=== PATIENT | female | born 1950 | race Caucasian/White ===

== ENCOUNTER → 2017-12-18 12:00 | Outpatient (CLI) | payer MEDICARE, SELFPAY ==
--- NOTE | 2017-12-18 12:04 | XR_ITS ---
XR ankle LT min 3V HISTORY: ITS.REASON: left ankle pain ORDERING PHYSICIAN: Brett Pérez MD PATIENT AGE: 67 years Comparison: None FINDINGS: No fracture or dislocation. No lytic or blastic change. There is normal mineralization.. The joint spaces are well-preserved. No significant degenerative/arthritic changes. No erosive changes evident. Foot fractures are present as described in the report IMPRESSION: No acute ankle findings
--- NOTE | 2017-12-18 12:04 | XR_ITS ---
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 There is an avulsion fracture involving the anterior lateral aspect of the calcaneus without significant displacement. Mildly displaced fracture involves the inferior aspect of the cuboid. There is an os navicularis. No other significant anomalies are evident. IMPRESSION: Mildly displaced cuboid fracture with nondisplaced anterior and lateral calcaneal avulsion fracture
--- NOTE | 2017-12-18 12:04 | XR_ITS ---
XR wrist LT min 3V HISTORY pain following injury, scaphoid fracture ITS.REASON: cast applied ORDERING PHYSICIAN: Brett Pérez MD PATIENT AGE: 67 years Comparison: 12/12/2017 FINDINGS: A cast has been placed which obscures fine detail of the bony elements. Nondisplaced trackers present through the waist of the scaphoid barely perceptible on these images due to the overlying cast. There is good alignment. The scapholunate space is slightly widened IMPRESSION: Interval placement of a cast with good alignment of the scaphoid fracture with mild widening of the scapholunate space
--- NOTE | 2017-12-18 13:48 | CT_ITS ---
CT wrist LT wo con HISTORY left wrist pain following injury, possible scaphoid fracture ITS.REASON: lt wrist fx/ without contrast ORDERING PHYSICIAN: Brett Pérez MD PATIENT AGE: 67 years Comparison: 12/12/2017 FINDINGS: The study is somewhat limited secondary to patient's inability to be properly positioned. The images are obtained in oblique rotated plain. Reformatted images are performed. There is a nondisplaced fracture through the waist of the navicular. Osteoarthritic changes are present at the first metacarpal carpal joint. Subarticular cystic changes are present in the capitate There is a longitudinal fracture through the mid to dorsal aspect of the triquetrum. A nondisplaced fracture also involves the dorsal aspect of the lunate. IMPRESSION: 1. Nondisplaced fracture of the waist of the navicular. 2. Nondisplaced longitudinal fracture of the mid to dorsal aspect of the triquetrum. 3. Nondisplaced avulsion fracture of the posterior aspect of the lunate
--- NOTE | 2017-12-18 13:48 | CT_ITS ---
CT foot LT wo con INDICATION: Posttraumatic pain, foot fracture ITS.REASON: lt foot fx/ without contrast ORDERING PHYSICIAN: Brett Pérez MD PATIENT AGE: 67 years COMPARISON: None TECHNIQUE: Axial images are obtained without contrast. Sagittal and coronal reformatted images are reviewed as well. All CT scans at the facility use one or more dose reduction, viz: automated exposure control, ma/kV adjustment per patient size (including targeted exams where dose is matched to indication, i.e. head), or iterative reconstruction technique. FINDINGS: Multiple fractures are present and include: Nondisplaced comminuted fracture through the anterior lateral aspect of the calcaneus just superior to the calcaneal cuboid junction There is an oblique fracture through the inferior aspect of the cuboid. This fragment is by approximately 4 mm. There is overlying soft tissue swelling. Nondisplaced longitudinal fracture through the mid to medial And proximal aspect of the navicular at the talonavicular junction. There also appears to be a nondisplaced fracture through the medial aspect of the navicular Osteoarthritic changes are present first metatarsal phalangeal junction. IMPRESSION: Multiple foot fractures including fractures of the calcaneus anteriorly and laterally, with a mildly displaced fracture at the cuboid, and nondisplaced fractures of the navicular. There is associated soft tissue swelling
== END ==
PROVIDERS: PCP Nurse Practitioner Family; Visit Provider Orthopaedic Surgery
DX: M79.672 Pain in left foot (principal); S62.102A Fracture of unspecified carpal bone, left wrist, initial encounter for closed fracture; M25.572 Pain in left ankle and joints of left foot; S92.902A Unspecified fracture of left foot, initial encounter for closed fracture
CPT/HCPCS: 73110; 73200; 73610; 73630; 73700

== ENCOUNTER 2017-12-18 14:34 | Outpatient (RCR) | payer MEDICARE, SELFPAY | END 2017-12-18 14:35 | disposition home or self-care (01) | LOC: PT 14:34 | PROVIDERS: Family Provider Nurse Practitioner Family; PCP Nurse Practitioner Family; Visit Provider Orthopaedic Surgery | DX: S82.001A Unspecified fracture of right patella, initial encounter for closed fracture (principal) | CPT/HCPCS: 97760 ==

== ENCOUNTER → 2018-01-14 14:30 | Outpatient (CLI) | payer MEDICARE, SELFPAY ==
--- NOTE | 2018-01-14 14:34 | XR_ITS ---
XR foot LT min 3V HISTORY: Follow-up fracture, pain ITS.REASON: left foot fracture ORDERING PHYSICIAN: Brett Pérez MD PATIENT AGE: 67 years COMPARISON: 12/18/2017 FINDINGS: There is been no significant change in the avulsion fracture at the calcaneal cuboid junction as well as the larger fracture of the cuboid. Which is slightly displaced inferiorly. There is a faint lucency through the mid aspect of the navicular with a nondisplaced fracture. IMPRESSION: 1. Overall no change in the foot fractures as described above.
--- NOTE | 2018-01-14 14:34 | XR_ITS ---
XR knee RT 2V HISTORY: Follow-up fracture ITS.REASON: follow up on fracture/ out of brace ORDERING PHYSICIAN: Brett Pérez MD PATIENT AGE: 67 years COMPARISON: None 12/12/2017 FINDINGS: Only AP and lateral views are obtained. The longitudinal fracture of the lateral aspect of the patella does appear less apparent. Fractures nondisplaced. A transverse lucency is present in the superior aspect of the patella and could be related to associated fracture as well. IMPRESSION: Nondisplaced patellar fracture somewhat less apparent
--- NOTE | 2018-01-14 14:41 | XR_ITS ---
XR wrist LT min 3V HISTORY ITS.REASON: scaphoid fracture left wrist/ xrays in cast! ORDERING PHYSICIAN: Brett Pérez MD PATIENT AGE: 67 years Comparison: 12/18/2017 FINDINGS: Study is obtained through cast. The scaphoid fractures obscured by the overlying cast. There is good alignment. IMPRESSION: Good alignment of scaphoid fracture which is obscured by overlying cast
== END ==
PROVIDERS: PCP Nurse Practitioner Family; Visit Provider Orthopaedic Surgery
DX: S92.212A Displaced fracture of cuboid bone of left foot, initial encounter for closed fracture (principal); S82.001A Unspecified fracture of right patella, initial encounter for closed fracture; S62.009A Unspecified fracture of navicular [scaphoid] bone of unspecified wrist, initial encounter for closed fracture
CPT/HCPCS: 73110; 73560; 73630

== ENCOUNTER → 2018-03-26 08:45 | Outpatient (CLI) | payer MEDICARE, SELFPAY ==
--- NOTE | 2018-03-26 08:48 | XR_ITS ---
XR foot LT min 3V HISTORY: Follow-up fracture ITS.REASON: lt foot fracture xrays out of splint ORDERING PHYSICIAN: Brett Pérez MD PATIENT AGE: 67 years COMPARISON: 01/14/2018 FINDINGS: No change in the avulsion fracture of the calcaneocuboid junction. Bony hypertrophic changes noted along the medial aspect of the navicular. Faint lucency of the mid aspect of the navicular once again noted and could represent residual from nondisplaced fracture. Mild osteoarthritic changes are present at the first MTP joint. IMPRESSION: Overall no change calcaneocuboid avulsion and possible nondisplaced fracture of the navicular
--- NOTE | 2018-03-26 08:48 | XR_ITS ---
XR knee RT 2V HISTORY: ITS.REASON: ap lateral ORDERING PHYSICIAN: Brett Pérez MD PATIENT AGE: 67 years COMPARISON: 01/14/2018 FINDINGS: Minimal osteoarthritic changes involve the patellofemoral joint. There is normal alignment. A faint longitudinal lucency noted along the lateral aspect of the patella and could be related to a persistent fracture line. CT may confirm. Otherwise negative. IMPRESSION: No change possible longitudinal fracture lateral aspect of the patella
--- NOTE | 2018-03-26 08:56 | XR_ITS ---
XR wrist LT w scaphoid HISTORY ITS.REASON: scaphoid fracture follow up ORDERING PHYSICIAN: Brett Pérez MD PATIENT AGE: 67 years Comparison: 01/14/2018 FINDINGS: The cast has been removed. There is generalized osteopenia. The navicular fracture line is not readily apparent. No evidence of sclerosis of the proximal pole. There is good alignment. IMPRESSION: Interval removal of the cast with no obvious residual fracture line with diffuse osteopenia
== END ==
PROVIDERS: PCP Nurse Practitioner Family; Visit Provider Orthopaedic Surgery
DX: S82.009A Unspecified fracture of unspecified patella, initial encounter for closed fracture (principal); S92.212A Displaced fracture of cuboid bone of left foot, initial encounter for closed fracture; S62.009A Unspecified fracture of navicular [scaphoid] bone of unspecified wrist, initial encounter for closed fracture
CPT/HCPCS: 73110; 73560; 73630

== ENCOUNTER 2019-03-15 13:45 | Outpatient (RCR) | payer MEDICARE, SELFPAY | END 2019-06-16 10:11 | disposition home or self-care (01) | LOC: PT 13:45 | PROVIDERS: Visit Provider Thoracic Surgery (Cardiothoracic Vascular Surgery) | DX: Z95.1 Presence of aortocoronary bypass graft (principal) | CPT/HCPCS: 93798 ==

== ENCOUNTER 2023-11-07 15:24 | Outpatient (CLI) | payer MEDICARE, SELFPAY ==
--- NOTE | 2023-11-07 15:28 | XR_ITS ---
FINAL REPORT TECHNIQUE: Bone densitometry calculations of the lumbar spine and left hip were obtained. CLINICAL HISTORY: osteoporosis COMPARISON: None FINDINGS: Using L1-4, the bone mineral density of the spine is 0.868 g/cm2, corresponding to T-score of -1.6. Using the left hip, the bone mineral density of the femoral neck is 0.506 g/cm2, corresponding to a T-score of -3.1. NOTE: T-score: Standard deviation compared with peak bone mass of young adult mean. *Following the recommendations of the International Society of Bone densitometry, classification of hip BMD is based on the lower of two T-scores; total hip or femoral neck. IMPRESSION: Diminished bone mineral density of the lumbar spine consistent with osteopenia. Diminished bone mineral density of the left hip, consistent with osteoporosis. Reviewed, Interpreted and Dictated by Bin Kraft MD Transcribed by Janis Goodrich Authenticated and [facility]
--- NOTE | 2023-11-07 15:28 | MM_ITS ---
PROCEDURE INFORMATION: Exam: MG Bilateral Screening 3D Mammography Exam date and time: 11/07/2023 3:18 PM Age: 72 years old Clinical indication: Screening examination TECHNIQUE: Imaging protocol: Bilateral Screening tomosynthesis and 2D mammography including computer-aided detection (CAD) when performed. COMPARISON: MG MM MAMMO DIGITAL TOOTIE SCREEN BILAT 01/25/2022 2:41 PM FINDINGS: MAMMOGRAPHY: Breast composition: There are scattered areas of fibroglandular density. Mass: No suspicious masses. Architectural distortion: None. Calcifications: No suspicious calcifications. Asymmetric density: None. Skin thickening: None. Axillary adenopathy: None. IMPRESSION: No mammographic evidence of malignancy. Annual screening is recommended unless otherwise clinically indicated. ASSESSMENT: BI-RADS Category 1: Negative
== END 2023-11-07 23:59 | disposition home or self-care (01) ==
LOC: RAD 15:25
PROVIDERS: PCP Internal Medicine; Visit Provider Internal Medicine
DX: M81.0 Age-related osteoporosis without current pathological fracture (principal); Z12.31 Encounter for screening mammogram for malignant neoplasm of breast
CPT/HCPCS: 77063; 77067; 77080

== ENCOUNTER 2024-07-01 14:00 | Outpatient (CLI) | payer MEDICARE, SELFPAY ==
[2024-07-01 18:23] LABS: Basophils # 0.1 K/mm3 (0-0.2); Basophils % 1.1 % (0.1-2.0); Eosinophils # 0.1 K/mm3 (0.0-0.4); Eosinophils % 1.7 % (0.1-12.0); Hematocrit 46.1 % (37.0-47.0); Hemoglobin 15.3 g/dL (12.2-16.2); Lymphocytes # 1.7 K/mm3 (0.7-4.5); Lymphocytes % 31.8 % (10-50); Mean Corpuscular HGB Conc 33.2 g/dL (31.8-35.4); Mean Corpuscular Hemoglobin 30.7 pg (27.0-31.2); Mean Corpuscular Volume 92.4 fl (81-99); Mean Platelet Volume 9.7 fl (7.4-10.4); Monocytes # 0.4 K/mm3 (0.1-1.0); Monocytes % 7.9 % (1.7-9.3); Neutrophils % 56.7 % (37.0-80.0); Nucleated Red Blood Cells # 0 10^3/uL; Nucleated Red Blood Cells % 0 %; Platelet Count 311 K/mm3 (142-424); Red Blood Count 4.99 M/mm3 (4.20-5.40); Red Cell Distribution Width 12.9 % (11.5-17.5); Red Cell Distribution Width-SD 43.9 fL; White Blood Count 5.3 K/mm3 (4.8-10.8)
[2024-07-01 19:45] LABS: Albumin Level 4.1 g/dl (3.5-5.0); Chloride 103 mmol/L (98-107); Potassium 4.6 mmoL/L (3.5-5.1); Sodium 140 mmol/L (136-145)
[2024-07-01 19:47] LABS: Blood Urea Nitrogen 17 mg/dl (7-17); Estimated Glomerular Filt Rate 70 ml/min (>60); GFR (African American) 85 ML/MIN (>60)
[2024-07-01 19:48] LABS: Alanine Aminotransferase 14 U/L (12-78); Albumin/Globulin Ratio 1.1 (1.1-1.8); Alkaline Phosphatase 67 U/L (38-126); Anion Gap 13.6 mEq/L (5-15); Aspartate Amino Transferase 23 U/L (14-36); Bilirubin,Total 0.5 mg/dl (0.2-1.3); Calcium 9.1 mg/dl (8.4-10.2); Carbon Dioxide 28 mmol/L (22.0-30.0); Chol/HDL Ratio 4.8 (1-3.5); Cholesterol 270 mg/dl (140-200); Globulin 3.6 g/dL (1.3-3.2); Glucose 109 mg/dl (74-100); HDL Cholesterol 56 mg/dl (40-60); Total Protein,Serum 7.7 g/dl (6.3-8.2); Triglycerides 114 mg/dl (30-150); VLDL Cholesterol 23 mg/dL (0-40)
[2024-07-01 20:19] LABS: 25-OH Vitamin D, Total < 12.8 ng/mL (30-100)
[2024-07-01 20:21] LABS: Thyroid Stimulating Hormone 1.79 uIU/mL (0.465-4.68)
[2024-07-01 21:53] LABS: Hemoglobin A1C 6.4 % (4.0-6.0)
== END 2024-07-01 23:59 | disposition home or self-care (01) ==
LOC: LAB.DROPOF 07-02 11:39
PROVIDERS: PCP Family Medicine; Visit Provider Family Medicine
DX: I25.10 Atherosclerotic heart disease of native coronary artery without angina pectoris (principal); I10 Essential (primary) hypertension; E78.5 Hyperlipidemia, unspecified; R73.03 Prediabetes; Z95.1 Presence of aortocoronary bypass graft
CPT/HCPCS: 80053; 80061; 82306; 83036; 84443; 85025

== ENCOUNTER 2024-10-13 13:50 | Outpatient (CLI) | payer MEDICARE, SELFPAY ==
[2024-10-13 19:37] LABS: Alanine Aminotransferase 21 U/L (12-78); Albumin Level 3.8 g/dl (3.5-5.0); Albumin/Globulin Ratio 1.4 (1.1-1.8); Anion Gap 11.2 mEq/L (5-15); Aspartate Amino Transferase 26 U/L (14-36); Bilirubin,Total 0.7 mg/dl (0.2-1.3); Blood Urea Nitrogen 13 mg/dl (7-17); Calcium 9.2 mg/dl (8.4-10.2); Carbon Dioxide 26 mmol/L (22.0-30.0); Chloride 106 mmol/L (98-107); Creatinine,Serum 1.00 mg/dl (0.52-1.04); Estimated Glomerular Filt Rate 54 ml/min (>60); GFR (African American) 65 ML/MIN (>60); Globulin 2.7 g/dL (1.3-3.2); Glucose 120 mg/dl (74-100); Potassium 4.2 mmoL/L (3.5-5.1); Sodium 139 mmol/L (136-145); Total Protein,Serum 6.5 g/dl (6.3-8.2); Triglycerides 94 mg/dl (30-150)
[2024-10-13 19:38] LABS: Alkaline Phosphatase 69 U/L (38-126); Cholesterol 134 mg/dl (140-200); HDL Cholesterol 42 mg/dl (40-60)
[2024-10-13 19:54] LABS: Hematocrit 41.4 % (37.0-47.0); Hemoglobin 13.0 g/dL (12.2-16.2); Immature Granulocytes % 0.2 %; Mean Corpuscular HGB Conc 31.4 g/dL (31.8-35.4); Mean Corpuscular Hemoglobin 29.7 pg (27.0-31.2); Mean Corpuscular Volume 94.5 fl (81-99); Nucleated Red Blood Cells % 0 %; Platelet Count 234 K/mm3 (142-424); Red Blood Count 4.38 M/mm3 (4.20-5.40); Red Cell Distribution Width-SD 48.4 fL; White Blood Count 4.2 K/mm3 (4.8-10.8)
[2024-10-13 20:08] LABS: 25-OH Vitamin D, Total < 12.8 ng/mL (30-100)
[2024-10-13 21:47] LABS: Hemoglobin A1C 6.5 % (4.0-6.0)
== END 2024-10-13 23:59 | disposition home or self-care (01) ==
LOC: LAB.DROPOF 10-14 10:23
PROVIDERS: PCP Family Medicine; Visit Provider Family Medicine
DX: I25.10 Atherosclerotic heart disease of native coronary artery without angina pectoris (principal); I10 Essential (primary) hypertension; E78.00 Pure hypercholesterolemia, unspecified; E55.9 Vitamin D deficiency, unspecified; R73.03 Prediabetes
CPT/HCPCS: 80053; 80061; 82306; 83036; 85025

== ENCOUNTER 2025-01-19 18:30 | Emergency (ER) | payer MEDICARE, SELFPAY ==
[2025-01-19] VITALS (14 sets, daily range): BP systolic 147–230; BP diastolic 73–104; PULSE 70–87; RESP 10–20; TEMP 36.9–37.2; O2SAT 90–97; BMI 25.0
--- NOTE | 2025-01-19 18:55 | ED_ITS ---
Discharge Plan Disposition Chief Complaint: Fall Prescriptions Prescriptions: No Action aspirin [Adult Aspirin Regimen] 81 mg tablet,delayed release (DR/EC) 81 mg PO DAILY Qty: 90 3RF lisinopril 20 mg tablet 20 mg PO atorvastatin 40 mg tablet See Rx Instructions .ROUTE .COMPLEX Qty: 90 1RF Dose Instruction: TAKE 1 TABLET BY MOUTH AT BEDTIME NIGHTLY Rx Instructions: TAKE 1 TABLET BY MOUTH AT BEDTIME NIGHTLY citalopram 20 mg tablet 20 mg PO DAILY Qty: 90 1RF bisoprolol fumarate 5 mg tablet 5 mg PO DAILY Qty: 30 3RF pantoprazole 20 mg tablet,delayed release (DR/EC) See Rx Instructions .ROUTE .COMPLEX Qty: 90 3RF Dose Instruction: TAKE 1 TABLET BY MOUTH ONCE DAILY Rx Instructions: TAKE 1 TABLET BY MOUTH ONCE DAILY Referrals Follow up/Referrals: Angeles Mireles APRN [Primary Care Provider, Family Practice] - See instructions Print Language Print Language: Divehi Discharge ED Provider: Young Fontenot General Adult HPI <PIETER Matias - Last Filed: 01/19/25 21:57> General Chief complaint: Fall Stated complaint: fall Time Seen by Provider: 01/19/25 18:38 Mode of Arrival: EMS Source of Information: Patient Description of Symptoms (Recalled from ER Triage Doc. by RN): Patient states that she was taking the dog out and tripped and landed on right hip. Patient complaining of pain in right hip. Patient did get an injection by PCP office yesterday for sciatica pain in that same hip. History of Present Illness HPI narrative: 74-year-old female presents emerged from via EMS for mechanical fall that happened just prior to arrival, patient states that she was taking the dog out and tripped over the dog . Landed on her right hip complaining of right hip pain, denies striking her head denies any LOC, denies any presyncopal or syncopal event, denies any neck pain, mid thoracic pain, or lower back pain, denies any radicular type symptomatology, denies urinary bladder or bowel dysfunction, denies any saddle anesthesia or numbness or tingling, patient denies any other upper or lower extremity injury, patient denies any fever chills chest pain shortness of breath nausea vomiting constipation diarrhea no urinary symptoms, other past medical history is consistent with hyperlipidemia, hypertension, osteoporosis, coronary artery disease status post CABG, patient is on antiplatelet therapy with aspirin, no anticoagulants, IKER, GERD, MDD. Initial triage vitals notable for hypertensive state at around 200 systolic otherwise unremarkable triage vitals. No history of tobacco alcohol or drug use. Also of note, triage nurse states that the patient did get what sounds like an IM injection by PCP yesterday for sciatic type pain. Please note that above description of symptoms, in this electronic medical record under categorization of recalled from ER triage doctor by RN are reflective of an initial nursing assessment, however, is not reflective of my full history and physical exam that was personally taken and clarified. Consequentially, this preceding description of symptoms, which may include the patient's categorized chief complaint in the EMR, do not reflect my personal clinical impression, and the ultimate description of history of present illness and patient stated complaints should be deferred to this section of the note. Unless stated otherwise or congruent with this section of the note, additional signs, symptoms, or incongruence should be interpreted as inaccurate with my clinical impression. Onset (ago): hour(s) Related Data Home Medications ?Medication ?Instructions ?Recorded ?Confirmed lisinopril 20 mg tablet 20 mg PO 12/30/24 01/18/25 Previous Rx's ?Medication ?Instructions ?Recorded pantoprazole 20 mg tablet,delayed See Rx Instructions .Route 06/11/24 release .COMPLEX #90 tabs aspirin 81 mg tablet,delayed 81 mg PO DAILY #90 tabs 0 07/01/24 release (Adult Aspirin Regimen) citalopram 20 mg tablet 20 mg PO DAILY Depression #9 0 tabs 07/15/24 bisoprolol fumarate 5 mg tablet 5 mg PO DAILY #30 tabs 10/13/24 atorvastatin 40 mg tablet See Rx Instructions .Route 1 .COMPLEX #90 ea Allergies Allergy/AdvReac Type Severity Reaction Status Date / Time No Known Drug Allergies Allergy Other Verified 01/19/25 18:37 PENDING SALE TO [facility] <PIETER Matias - Last Filed: 01/19/25 21:57> PENDING SALE TO [facility] Disclaimer: The information contained in this section may have been updated after the patient was seen, as this information can be updated by other users. Surgical History (Updated 01/18/25 @ 14:21 by Lyn Campoverde MA) History of cholecystectomy History of open heart surgery Social History Smoking Status: Never smoker second hand exposure: No alcohol intake: never substance use type: denies use current occupational status: unemployed Travel in the last 8 weeks?: None Have you lived/traveled outside US in past 30 days?: No Contact w/someone who lives/traveled outside US past 30 days?: No Exposure to someone with infectious disease in past 14 days?: No Do you have a fever (greater than 100.4 F or 38 C)?: No Have you tested positive for COVID-19?: No Exposed to someone with COVID-19 in past 14 days?: No Do you have a sore throat?: No Do you have a cough?: No Do you have any weakness?: No Do you have any diarrhea?: No Are you experiencing any unusual bleeding?: No Do you have any muscle aches/pain?: No Do you have any abdominal pain?: No Are you experiencing loss of taste or smell?: No Other Medical History Have you received the Pneumonia Vaccine: No <PIETER Matias - Last Filed: 01/19/25 21:57> ROS Obtained: Yes All systems reviewed & no additional complaints except as documented Physical Exam <PIETER Matias - Last Filed: 01/19/25 21:57> General General appearance: alert and in no apparent distress Head Head exam: atraumatic and normocephalic Eye Eye exam: Present PERRL and EOMI ENT ENT exam: Present mucous membranes moist Neck Neck exam: Present normal inspection Chest Chest inspection: Present normal inspection and symmetric chest wall rise Respiratory Respiratory exam: Present normal lung sounds bilaterally; Absent respiratory distress, wheezes or stridor Cardiovascular Cardiovascular exam: Present regular rate and normal rhythm Abdominal Exam Abdominal exam: Present soft; Absent tenderness, guarding, rebound or rigidity Extremities Exam Extremities exam: Present tenderness and other (No obvious limb shortening or external rotation of the patient's hip pain to palpation of the intertrochanteric region, otherwise neurovascular intact, some pain limited range of motion, but wiggles the toes with good plantarflexion dorsiflexion. No open fracture or other traumatic injury of the bi); Absent normal inspection or full ROM Back Exam Back exam: Absent paraspinal tenderness or vertebral tenderness Neurological Exam Neurological exam: Present alert and oriented X3 Psychiatric Psychiatric exam: Present normal affect Skin Skin exam: Present warm and dry Medical Decision Making <PIETER Matias - Last Filed: 01/19/25 21:57> Medical Records Medical records reviewed: Yes I reviewed the patient's medical records. Screening: Per USPSTF and CDC recommendations, given the prevalence of disease in our region, it is our hospital?s policy to screen for HIV and viral Hepatitis for all patients aged 18 and over and those with ongoing risk factors. Beau Inquiry Pt receiving controlled substance: Yes Beau was queried for this patient: No Reason not queried -: Emergent pt cond-no time Risks and benefits of using a controlled substance: were discussed with pt by me Vital Signs: 01/19/25 18:31 01/19/25 18:32 01/19/25 19:05 Temperature 98.5 F Temperature Source Oral Pulse Rate 78 74 Pulse Rate [Right Brachial] 81 Respiratory Rate 18 16 19 Blood Pressure 210/89 H 147/95 H Blood Pressure [Right Arm] 210/89 H Blood Pressure Mean [Right Arm] 129 Blood Pressure Source [Right Arm] Automatic Cuff Blood Pressure Position [Right Arm] Sitting 02 Sat by Pulse Oximetry 94 L 94 L 92 L Oxygen Delivery Method Room Air 01/19/25 19:22 01/19/25 19:35 01/19/25 19:53 Temperature Temperature Source Pulse Rate 70 77 Pulse Rate [Right Brachial] Respiratory Rate 16 10 L Blood Pressure 230/88 H 216/85 H Blood Pressure [Right Arm] Blood Pressure Mean [Right Arm] Blood Pressure Source [Right Arm] Blood Pressure Position [Right Arm] 02 Sat by Pulse Oximetry 96 96 92 L Oxygen Delivery Method Room Air Room Air 01/19/25 20:31 01/19/25 21:01 01/19/25 22:06 Temperature Temperature Source Pulse Rate 77 82 86 Pulse Rate [Right Brachial] Respiratory Rate 20 16 15 Blood Pressure 175/95 H 169/104 H 194/80 H Blood Pressure [Right Arm] Blood Pressure Mean [Right Arm] Blood Pressure Source [Right Arm] Blood Pressure Position [Right Arm] 02 Sat by Pulse Oximetry 90 L 91 L 90 L Oxygen Delivery Method Room Air Lab Data Lab results reviewed: Yes I reviewed the patient's lab results. Lab Results 01/19/25 18:20: WBC 12.4 H, RBC 4.34, Hgb 13.3, Hct 40.6, MCV 93.5, MCH 30.6, MCHC 32.8, RDW 12.8, Plt Count 332, MPV 9.8, Neut % (Auto) 73.0, Lymph % (Auto) 21.5, Lyon % (Auto) 4.8, Eos % (Auto) 0.2, Baso % (Auto) 0.2, Neut # (Auto) 9.1 H, Lymph # (Auto) 2.7, Lyon # (Auto) 0.6, Eos # (Auto) 0.0, Baso # (Auto) 0.0, S odium 134 L, Potassium 4.3, Chloride 100, Carbon Dioxide 24, Anion Gap 14.3, BUN 28 H, Creatinine 1.10 H, Estimated Creat Clear 47, Estimated GFR 48 L, Est GFR ( Amer) 58 L, Glucose 200 H, Calcium 8.9, Total Bilirubin 0.9, AST 44 H, ALT 25, Alkaline Phosphatase 55, Total Protein 8.5 H D, Albumin 4.6, Globulin 3.9 H, Albumin/Globulin Ratio 1.2 01/19/25 18:20 01/19/25 18:20 Orders (Tests/Meds): ED MEDICATIONS Discontinued Medications Generic Name Dose Route Start Last Admin Trade Name Freq PRN Reason Stop Dose Admin Fentanyl Citrate 50 mcg 01/19/25 19:01 01/19/25 19:50 Fentanyl 100mcg/2ml Vial IV 01/19/25 19:02 50 mcg ONCE ONE Administration Ondansetron HCl 4 mg 01/19/25 19:02 01/19/25 19:50 Ondansetron 4mg/2ml Vial IV 01/19/25 19:03 4 mg ONCE ONE Administration ORDERS Category Date Time Status CT bony pelvis Stat Cat Scan 01/19/25 19:[address] cervical spine wo con Stat Cat Scan 01/19/25 19:[address] head/brain wo con Stat Cat Scan 01/19/25 19:[address] lumbar spine wo con Stat Cat Scan 01/19/25 19:00 Completed XR chest portable Stat Exams 01/19/25 19:00 Completed XR femur RT 2V Stat Exams 01/19/25 19:01 Completed XR hip RT 2-3V w/pelvis Stat Exams 01/19/25 19:00 Completed Complete Blood Count Auto Diff Stat Lab 01/19/25 18:20 Completed Comprehensive Metabolic Panel Stat Lab 01/19/25 18:20 Completed Medical Decision Narrative: 74-year-old female presents the emergency department with a mechanical fall and right hip pain, differential diagnose include but not limited to, hip fracture, hip strain/sprain, sacral fracture, pelvic fracture, lumbar vertebral body fracture, back strain/sprain, femur fracture among others. Will obtain basic laboratory studies, CT head without contrast CT cervical spine without contrast, CT lumbar spine without contrast, CT bony pelvis, chest x-ray femur x-ray and right hip/pelvic x-ray, will give 50 mics of IV fentanyl and 4 mg IV Zofran, as well as basic laboratory studies. CBC notable for leukocytosis 12.4 CMP is noted for mild hyponatremia 134, BUN elevation 28 and creatinine elevation 1.1, I reviewed the patient's CT pelvis without contrast on the corresponding radiologic report, displaced impacted fracture involving the subcapital right femoral neck I reviewed the patient's CT cervical spine without contrast on the corresponding radiologic report, no acute cervical fracture or traumatic subluxation straightening lordosis with levocurvature, mild multilevel degenerative disc disease and facet joint spondylosis moderate to severe calcifications of the bilateral carotid arteries consider follow-up nonemergent carotid Doppler or CTA. I reviewed the patient's CT head without contrast along the corresponding radiologic report, no acute intracranial abnormality, chronic intracranial findings, mild soft tissue swelling of the right frontal scalp. I reviewed the patient's CT lumbar spine without contrast along the corresponding radiologic report, no acute osseous abnormality, degenerative changes as above MRI if clinically warranted. I reviewed the patient's right femur x-ray along the corresponding radiologic report, fracture of the right femoral neck is better evaluated on CT. I reviewed the patient's chest x-ray along with corresponding radiologic report, no acute process. I reviewed the patient's hip x-ray along the corresponding radiologic report, fracture of the right femoral neck better evaluated on CT. I discussed this patient's case with the on-call orthopedic surgeon Dr. Boyer at approximately 825 PM, he saw and reviewed the patient's x-ray films, unfortunately Dr. Boyer is going out of town, and will not be available for surgical consultation/fixation. He recommends transfer. I discussed this patient's case with [facility] orthopedic surgeon on- call Dr.Peterson Marin, at approximately 8:50 PM, he would like me to send him the images of the CT as well as plain film x-rays he will call me back/advise me for any further recommendations after he reviews the patient's films. I discussed this patient's case over the telephone with orthopedic surgeon as discussed above at approximately 9:09 PM, he recommends transferring the patient to [facility] as himself or one of his partners will be able to perform surgical intervention on her there. Thus we will reach out to [facility] for transfer. I discussed this with the patient and daughter (Anastasia) over the phone at the bedside they are in agreement with the current treatment plan/transfer plan to [facility] if excepted by hospitalist/transfer physician. I discussed this patient's case with the attending physician Dr. Fontenot at shift change he will be assuming the remainder of the patient's care/workup, disposition is pending callback from [facility] and pending admission/acceptance by hospital/transfer physician. <Young Fontenot MD - Last Filed: 01/19/25 22:09> Vital Signs: 01/19/25 18:31 01/19/25 18:32 01/19/25 19:05 Temperature 98.5 F Temperature Source Oral Pulse Rate 78 74 Pulse Rate [Right Brachial] 81 Respiratory Rate 18 16 19 Blood Pressure 210/89 H 147/95 H Blood Pressure [Right Arm] 210/89 H Blood Pressure Mean [Right Arm] 129 Blood Pressure Source [Right Arm] Automatic Cuff Blood Pressure Position [Right Arm] Sitting 02 Sat by Pulse Oximetry 94 L 94 L 92 L Oxygen Delivery Method Room Air 01/19/25 19:22 01/19/25 19:35 01/19/25 19:53 Temperature Temperature Source Pulse Rate 70 77 Pulse Rate [Right Brachial] Respiratory Rate 16 10 L Blood Pressure 230/88 H 216/85 H Blood Pressure [Right Arm] Blood Pressure Mean [Right Arm] Blood Pressure Source [Right Arm] Blood Pressure Position [Right Arm] 02 Sat by Pulse Oximetry 96 96 92 L Oxygen Delivery Method Room Air Room Air 01/19/25 20:31 01/19/25 21:01 01/19/25 22:06 Temperature Temperature Source Pulse Rate 77 82 86 Pulse Rate [Right Brachial] Respiratory Rate 20 16 15 Blood Pressure 175/95 H 169/104 H 194/80 H Blood Pressure [Right Arm] Blood Pressure Mean [Right Arm] Blood Pressure Source [Right Arm] Blood Pressure Position [Right Arm] 02 Sat by Pulse Oximetry 90 L 91 L 90 L Oxygen Delivery Method Room Air Lab Data Lab Results 01/19/25 18:20: WBC 12.4 H, RBC 4.34, Hgb 13.3, Hct 40.6, MCV 93.5, MCH 30.6, MCHC 32.8, RDW 12.8, Plt Count 332, MPV 9.8, Neut % (Auto) 73.0, Lymph % (Auto) 21.5, Lyon % (Auto) 4.8, Eos % (Auto) 0.2, Baso % (Auto) 0.2, Neut # (Auto) 9.1 H, Lymph # (Auto) 2.7, Lyon # (Auto) 0.6, Eos # (Auto) 0.0, Baso # (Auto) 0.0, S odium 134 L, Potassium 4.3, Chloride 100, Carbon Dioxide 24, Anion Gap 14.3, BUN 28 H, Creatinine 1.10 H, Estimated Creat Clear 47, Estimated GFR 48 L, Est GFR ( Amer) 58 L, Glucose 200 H, Calcium 8.9, Total Bilirubin 0.9, AST 44 H, ALT 25, Alkaline Phosphatase 55, Total Protein 8.5 H D, Albumin 4.6, Globulin 3.9 H, Albumin/Globulin Ratio 1.2 Orders (Tests/Meds): ED MEDICATIONS Discontinued Medications Generic Name Dose Route Start Last Admin Trade Name Rubinq PRN Reason Stop Dose Admin Fentanyl Citrate 50 mcg 01/19/25 19:01 01/19/25 19:50 Fentanyl 100mcg/2ml Vial IV 01/19/25 19:02 50 mcg ONCE ONE Administration Ondansetron HCl 4 mg 01/19/25 19:02 01/19/25 19:50 Ondansetron 4mg/2ml Vial IV 01/19/25 19:03 4 mg ONCE ONE Administration ORDERS Category Date Time Status CT bony pelvis Stat Cat Scan 01/19/25 19:[address] cervical spine wo con Stat Cat Scan 01/19/25 19:[address] head/brain wo con Stat Cat Scan 01/19/25 19:[address] lumbar spine wo con Stat Cat Scan 01/19/25 19:00 Completed XR chest portable Stat Exams 01/19/25 19:00 Completed XR femur RT 2V Stat Exams 01/19/25 19:01 Completed XR hip RT 2-3V w/pelvis Stat Exams 01/19/25 19:00 Completed Complete Blood Count Auto Diff Stat Lab 01/19/25 18:20 Completed Comprehensive Metabolic Panel Stat Lab 01/19/25 18:20 Completed Medical Decision Narrative: 74-year-old female presents the emergency department with a mechanical fall and right hip pain, differential diagnose include but not limited to, hip fracture, hip strain/sprain, sacral fracture, pelvic fracture, lumbar vertebral body fracture, back strain/sprain, femur fracture among others. Will obtain basic laboratory studies, CT head without contrast CT cervical spine without contrast, CT lumbar spine without contrast, CT bony pelvis, chest x-ray femur x-ray and right hip/pelvic x-ray, will give 50 mics of IV fentanyl and 4 mg IV Zofran, as well as basic laboratory studies. CBC notable for leukocytosis 12.4 CMP is noted for mild hyponatremia 134, BUN elevation 28 and creatinine elevation 1.1, I reviewed the patient's CT pelvis without contrast on the corresponding radiologic report, displaced impacted fracture involving the subcapital right femoral neck I reviewed the patient's CT cervical spine without contrast on the corresponding radiologic report, no acute cervical fracture or traumatic subluxation straightening lordosis with levocurvature, mild multilevel degenerative disc disease and facet joint spondylosis moderate to severe calcifications of the bilateral carotid arteries consider follow-up nonemergent carotid Doppler or CTA. I reviewed the patient's CT head without contrast along the corresponding radiologic report, no acute intracranial abnormality, chronic intracranial findings, mild soft tissue swelling of the right frontal scalp. I reviewed the patient's CT lumbar spine without contrast along the corresponding radiologic report, no acute osseous abnormality, degenerative changes as above MRI if clinically warranted. I reviewed the patient's right femur x-ray along the corresponding radiologic report, fracture of the right femoral neck is better evaluated on CT. I reviewed the patient's chest x-ray along with corresponding radiologic report, no acute process. I reviewed the patient's hip x-ray along the corresponding radiologic report, fracture of the right femoral neck better evaluated on CT. I discussed this patient's case with the on-call orthopedic surgeon Dr. Boyer at approximately 825 PM, he saw and reviewed the patient's x-ray films, unfortunately Dr. Boyer is going out of town, and will not be available for surgical consultation/fixation. He recommends transfer. I discussed this patient's case with [facility] orthopedic surgeon on- call Dr.Peterson Marin, at approximately 8:50 PM, he would like me to send him the images of the CT as well as plain film x-rays he will call me back/advise me for any further recommendations after he reviews the patient's films. I discussed this patient's case over the telephone with orthopedic surgeon as discussed above at approximately 9:09 PM, he recommends transferring the patient to [facility] as himself or one of his partners will be able to perform surgical intervention on her there. Thus we will reach out to [facility] for transfer. I discussed this with the patient and daughter (Anastasia) over the phone at the bedside they are in agreement with the current treatment plan/transfer plan to [facility] if excepted by hospitalist/transfer physician. I discussed this patient's case with the attending physician Dr. Fontenot at shift change he will be assuming the remainder of the patient's care/workup, disposition is pending callback from [facility] and pending admission/acceptance by hospital/transfer physician. Young Fontenot MD: I assumed care of this patient at approximately 2200. At approximately 2205, [facility] called and I spoke with nurse practitioner Shantanu Estrada who accepted the patient for admission under Dr. Ferris. They will call back with bed number. Will arrange for ground transport once they have bed available. Critical Care <PIETER Matias - Last Filed: 01/19/25 21:57> Critical Care Time Critical Care Time: No
--- NOTE | 2025-01-19 19:00 | CT_ITS ---
PROCEDURE INFORMATION: Exam: CT Lumbar Spine Without Contrast Exam date and time: 01/19/2025 7:23 PM Age: 74 years old Clinical indication: Injury or trauma; Fall; Blunt trauma (contusions or hematomas); Additional info: Fall lower back pain/right hip TECHNIQUE: Imaging protocol: Computed tomography of the lumbar spine without contrast. Radiation optimization: All CT scans at this facility use at least one of these dose optimization techniques: automated exposure control; mA and/or kV adjustment per patient size (includes targeted exams where dose is matched to clinical indication); or iterative reconstruction. COMPARISON: No relevant prior studies available. FINDINGS: Bones/joints: Mild levoconvex curvature. Grade 1 anterolisthesis of L4 on L5 and mild retrolisthesis of L2 on L3. Vertebral body heights are preserved. There are bilateral facet joint degenerative changes. Disc space narrowing with vacuum disc phenomena at L5-S1. No acute fracture. No osseous destruction. Vasculature: Vascular calcification. Soft tissues: Unremarkable. IMPRESSION: 1. No acute osseous abnormality. 2. Degenerative change as above, MRI as clinically warranted.
--- NOTE | 2025-01-19 19:00 | XR_ITS ---
PROCEDURE INFORMATION: Exam: XR Right Hip Exam date and time: 01/19/2025 7:30 PM Age: 74 years old Clinical indication: Injury or trauma; Fall; Blunt trauma (contusions or hematomas); Right; Hip; Additional info: Fall right hip pain TECHNIQUE: Imaging protocol: Radiologic exam of the right hip. Views: 2 or 3 views hip with pelvis when performed. COMPARISON: CT BONY PELVIS 01/19/2025 7:26 PM FINDINGS: Bones/joints: Osteopenia. Degenerative change involving the lumbar spine, sacroiliac joints and hip joints. There is fracture of the right femoral neck. Soft tissues: Unremarkable. IMPRESSION: Fracture of the right femoral neck, better evaluated on CT.
--- NOTE | 2025-01-19 19:00 | CT_ITS ---
PROCEDURE INFORMATION: Exam: CT Cervical Spine Without Contrast Exam date and time: 01/19/2025 7:22 PM Age: 74 years old Clinical indication: Injury or trauma; Fall; Blunt trauma TECHNIQUE: Imaging protocol: Computed tomography of the cervical spine without contrast. Total images: 384 Radiation optimization: All CT scans at this facility use at least one of these dose optimization techniques: automated exposure control; mA and/or kV adjustment per patient size (includes targeted exams where dose is matched to clinical indication); or iterative reconstruction. COMPARISON: CT HEAD/BRAIN WO CON 01/19/2025 7:20 PM FINDINGS: Bones: Osteopenia. Straightened cervical lordosis with levocurvature. Vertebral body height and alignment is maintained. Base of the dens and the C1 and C2 articulations are preserved with mild degenerative arthropathy. The cervicooccipital junction is intact. The facet joints are appropriately aligned with mild degenerative spondylosis throughout. Posterior elements are intact. Mild degenerative disc disease throughout the cervical spine, greatest C4-C5 and C5-C6. No large disc herniation, spinal canal stenosis, or neural foraminal encroachment. No concerning bone lesions. Lungs: Lung apices are clear. Vasculature: Moderate to severe calcifications bilateral carotid arteries. Soft tissues: No prevertebral soft tissue swelling. Unremarkable soft tissues of the neck. IMPRESSION: 1. No acute cervical fracture or traumatic subluxation. 2. Straightened lordosis with levocurvature. 3. Mild multilevel degenerative disc disease and facet joint spondylosis. 4. Moderate to severe calcifications bilateral carotid arteries. Consider follow-up nonemergent carotid Doppler or CTA
--- NOTE | 2025-01-19 19:00 | CT_ITS ---
PROCEDURE INFORMATION: Exam: CT Head Without Contrast Exam date and time: 01/19/2025 7:20 PM Age: 74 years old Clinical indication: Injury or trauma; Fall; Blunt trauma (contusions or hematomas) TECHNIQUE: Imaging protocol: Computed tomography of the head without contrast. Total images: 536 Radiation optimization: All CT scans at this facility use at least one of these dose optimization techniques: automated exposure control; mA and/or kV adjustment per patient size (includes targeted exams where dose is matched to clinical indication); or iterative reconstruction. COMPARISON: No relevant prior studies available. FINDINGS: Brain: No acute intracranial hemorrhage, midline shift, or mass. Age-appropriate cortical involution. Mild remote white matter small-vessel ischemic changes. No acute territorial infarct. Punctate calcifications/mineralization in the basal ganglia. Tiny remote lacunar infarct right basal ganglia. Basilar cisterns are preserved. Cerebral ventricles: No ventriculomegaly. Paranasal sinuses: Visualized sinuses are unremarkable. No fluid levels. Mastoid air cells: Visualized mastoid air cells are well aerated. Orbital cavities: Right orbital lens replacement. Bones: Osteopenia. No skull fracture. Soft tissues: Minor soft tissue swelling right frontal scalp. Vasculature: Severe calcifications bilateral intracranial internal carotid arteries. Notes: Limited by extrinsic artifact. IMPRESSION: 1. No acute intracranial abnormality. 2. Chronic intracranial findings. 3. Mild soft tissue swelling right frontal scalp.
--- NOTE | 2025-01-19 19:00 | XR_ITS ---
PROCEDURE INFORMATION: Exam: XR Chest Exam date and time: 01/19/2025 7:30 PM Age: 74 years old Clinical indication: Injury or trauma; Fall; Blunt trauma (contusions or hematomas) TECHNIQUE: Imaging protocol: Radiologic exam of the chest. Views: 1 view. COMPARISON: CT CERVICAL SPINE WO CON 01/19/2025 7:22 PM FINDINGS: Lungs: Unremarkable. No consolidation. Pleural spaces: Unremarkable. No pleural effusion. No pneumothorax. Heart/Mediastinum: Cardiac silhouette is magnified by portable technique. Previous coronary artery bypass grafting. Bones/joints: Previous median sternotomy. Osteopenia. Degenerative change involving the shoulders and spine. IMPRESSION: No acute process.
--- NOTE | 2025-01-19 19:01 | CT_ITS ---
PROCEDURE INFORMATION: Exam: CT Pelvis Without Contrast, Skeleton Exam date and time: 01/19/2025 7:26 PM Age: 74 years old Clinical indication: Injury or trauma; Fall; Blunt trauma (contusions or hematomas); Right; Hip; Additional info: Fall right hip pain TECHNIQUE: Imaging protocol: Computed tomography of the pelvis without contrast. Exam focused on the skeleton. Radiation optimization: All CT scans at this facility use at least one of these dose optimization techniques: automated exposure control; mA and/or kV adjustment per patient size (includes targeted exams where dose is matched to clinical indication); or iterative reconstruction. COMPARISON: CT LUMBAR SPINE WO CON 01/19/2025 7:23 PM FINDINGS: Intestine: Diverticulosis. Vasculature: Phleboliths within the pelvis. Bones/joints: Osteopenia. Degenerative change involving the lumbar spine, sacroiliac joints and hip joints. There is displaced/impacted fracture involving the subcapital right femoral neck. Soft tissues: Unremarkable. IMPRESSION: Displaced/impacted fracture involving the subcapital right femoral neck.
--- NOTE | 2025-01-19 19:01 | XR_ITS ---
PROCEDURE INFORMATION: Exam: XR Right Femur Exam date and time: 01/19/2025 7:30 PM Age: 74 years old Clinical indication: Injury or trauma; Fall; Blunt trauma; Hip; Right; Additional info: Fall right hip pain TECHNIQUE: Imaging protocol: Radiologic exam of the right femur. Views: 2 views. COMPARISON: CT BONY PELVIS 01/19/2025 7:26 PM FINDINGS: Bones/joints: Fracture of the right femoral neck. No dislocation. Osteopenia. Degenerative change. Soft tissues: Unremarkable. Vasculature: Vascular calcification. IMPRESSION: Fracture of the right femoral neck is better evaluated on CT.
[2025-01-19 19:05] LABS: Hematocrit 40.6 % (37.0-47.0); Hemoglobin 13.3 g/dL (12.2-16.2); Immature Granulocytes % 0.3 %; Mean Corpuscular HGB Conc 32.8 g/dL (31.8-35.4); Mean Corpuscular Hemoglobin 30.6 pg (27.0-31.2); Mean Corpuscular Volume 93.5 fl (81-99); Nucleated Red Blood Cells % 0 %; Platelet Count 332 K/mm3 (142-424); Red Blood Count 4.34 M/mm3 (4.20-5.40); Red Cell Distribution Width-SD 44.2 fL; White Blood Count 12.4 K/mm3 (4.8-10.8)
[2025-01-19 19:10] LABS: Alanine Aminotransferase 25 U/L (12-78); Albumin Level 4.6 g/dl (3.5-5.0); Albumin/Globulin Ratio 1.2 (1.1-1.8); Alkaline Phosphatase 55 U/L (38-126); Anion Gap 14.3 mEq/L (5-15); Aspartate Amino Transferase 44 U/L (14-36); Bilirubin,Total 0.9 mg/dl (0.2-1.3); Blood Urea Nitrogen 28 mg/dl (7-17); Calcium 8.9 mg/dl (8.4-10.2); Carbon Dioxide 24 mmol/L (22.0-30.0); Chloride 100 mmol/L (98-107); Creatinine Clearance Estimated 47 mL/min (50-200); Creatinine,Serum 1.10 mg/dl (0.52-1.04); Estimated Glomerular Filt Rate 48 ml/min (>60); GFR (African American) 58 ML/MIN (>60); Globulin 3.9 g/dL (1.3-3.2); Glucose 200 mg/dl (74-100); Potassium 4.3 mmoL/L (3.5-5.1); Sodium 134 mmol/L (136-145); Total Protein,Serum 8.5 g/dl (6.3-8.2)
[2025-01-19] MEDS: ONDANSETRON 4MG/2ML VIAL 4 MG IV (19:50)
[2025-01-19] MEDS: FENTANYL 100MCG/2ML VIAL 50 MCG IV (19:50)
--- NOTE | 2025-01-19 22:23 | PC.NURSE ---
Called to give report, MALDONADO Huerta stated she isnt sure where PT is going. Requested to call back in 15 minutes.
--- NOTE | 2025-01-19 23:13 | PC.NURSE ---
Report called to MALDONADO Marino at [facility]
--- NOTE | 2025-01-19 23:22 | PC.NURSE ---
Contacted [facility] r/t xfer to [facility]
[2025-01-19] MEDS: MORPHINE 4MG/ML SYRINGE 4 MG IV (23:48)
== END 2025-01-20 01:08 | disposition short-term general hospital (02) ==
PROVIDERS: Physician Assistant; Emergency Provider Student in an Organized Health Care Education/Training Program; PCP Family Medicine
DX: S72.041A Displaced fracture of base of neck of right femur, initial encounter for closed fracture (principal); E87.1 Hypo-osmolality and hyponatremia; I10 Essential (primary) hypertension; E78.5 Hyperlipidemia, unspecified; W01.10XA Fall on same level from slipping, tripping and stumbling with subsequent striking against unspecified object, initial encounter
CPT/HCPCS: 70450; 71045; 72125; 72131; 72192; 73502; 73552; 80053; 85025; 96374; 96375; 99285; J2270; J2405; J3010